=== PATIENT | female | born 1955 | race Caucasian/White ===

== ENCOUNTER 2018-07-07 16:42 | Emergency (ER) | payer BC ==
[2018-07-07 16:53] VITALS: BP 153/77
--- NOTE | 2018-07-07 17:20 | UC ---
Skin Complaint HPI - HPI Summary HPI Summary: PT NOTED A RASH TO HER RIGHT LOWER LEG 7 DAYS AGO. SHE SELF TREATED WITH TWICE DAILY STEROID CREAM X 4 DAYS. THE STEROID CONSISTED OF AN OTC 1% HYDROCORTISONE FOR ONE DOSE THEN HER BOYFRIENDS 2.5% HYDROCORTISONE FOR THE SECOND DOSE DAILY X 4 DAYS. IT DIDN'T HELP AND PT THINKS WORSENING. SHE ALSO TRIED CALAMINE LOTION FOR 2 DAYS WITHOUT ANY IMPROVEMENT WELL. SHE DENIES ANY HX OF ITCH OR PAIN. SHE DENIES ANY OUT OF DOORS ACTIVITY TO CAUSE A CONTACT DERMATITIS. SHE HAS NO OTHER RASH. - History of Current Complaint Chief Complaint: [facility] Time Seen by Provider: 07/07/18 16:55 Stated Complaint: SKIN CONCERN - RT LEG Hx Obtained From: Patient Pain Intensity: 0 Aggravating Factor(s): Nothing Alleviating Factor(s): Nothing Associated Signs & Symptoms: Positive: Rash. Negative: Fever - Allergy/Home Medications Allergies/Adverse Reactions: Allergies Allergy/AdvReac Type Severity Reaction Status Date / Time Penicillins Allergy Hives Verified 07/07/18 16:56 Sulfa (Sulfonamide Allergy Unknown Verified 07/07/18 16:56 Antibiotics) Reaction Details Review of Systems Constitutional: Negative Skin: Rash - RLE Eyes: Negative ENT: Negative Respiratory: Negative Cardiovascular: Negative Gastrointestinal: Negative Genitourinary: Negative Motor: Negative Neurovascular: Negative Musculoskeletal: Negative Neurological: Negative Psychological: Negative Is Patient Immunocompromised?: No All Other Systems Reviewed And Are Negative: Yes PMH/Surg Hx/FS Hx/Imm Hx - Additional Past Medical History Additional PMH: MVP Cardiovascular History: Hypertension GI/ History: Gastroesophageal Reflux Psychological History: Depression - Surgical History Surgical History: Yes Surgery Procedure, Year, and Place: appy. tonsilectomy. left ear surgery at age 18 - Family History Known Family History: Positive: Hypertension - Social History Occupation: Employed Full-time Alcohol Use: Weekly Alcohol Amount: WINE Substance Use Type: None Smoking Status (MU): Former Smoker Have You Smoked in the Last Year: No - Immunization History Most Recent Tetanus Shot: 2011 Hx Tetanus, Diphtheria Vaccination: No Vaccination Up to Date: Yes Physical Exam Triage Information Reviewed: Yes Appearance: Well-Appearing Vital Signs: Initial Vital Signs Temp 98.2 F 07/07/18 16:50 Pulse 75 07/07/18 16:50 Resp 18 08/06/18 16:50 BP 153/77 07/07/18 16:50 Pulse Ox 99 07/07/18 16:50 Vital Signs Reviewed: Yes Eyes: Positive: Conjunctiva Clear ENT: Positive: Pharynx normal. Negative: Nasal congestion, Nasal drainage Neck: Positive: Supple, Nontender, No Lymphadenopathy Respiratory: Positive: Lungs clear, Normal breath sounds Cardiovascular: Positive: RRR, No Murmur Abdomen Description: Positive: Nontender, No Organomegaly, Soft Bowel Sounds: Positive: Present Musculoskeletal: Positive: ROM Intact, No Edema Neurological: Positive: Alert Psychological: Positive: Age Appropriate Behavior Skin Exam: Normal, Other - 2CM X 2-3MM linear red rash medial aspect of RLE. some vesicles noted but no peeling, burrows and not petechial. no other rash on body. Course/Dx - Course Course Of Treatment: PROCEDURE: Rash prep betadine. Scant fluid obtained with tip of 18g needle and superficial aspiration. site clensed, bacitracin applied then bandaide. pt tolerted well. pt has self tx with 1% and 2.5% hydrocortisone plus calamine without improvement. despite tx, there is some ? worsening as well thus I think this goes against contact dermatitis which would have been my 1st concern. it does not look fungal. it does not look c/w an infestation. i was able to collect a little fluid for culture. i will d/c prior tx's since not helping and site has ? worsening. i will cover for a possible bacterial infection with doxycycline x1 week since pt is allergic to sulfa and pcn classes. need for close f/u with pcp for recheck d/w pt as well. - Diagnoses Provider Diagnoses: Acute rash RLE Discharge - Sign-Out/Discharge Documenting (check all that apply): Patient Departure - Discharge Plan Condition: Stable Disposition: HOME Prescriptions: DOXYcycline CAP(*) [DOXYcycline 100MG CAP(*)] 100 mg PO BID #14 cap Patient Education Materials: Acute Rash (ED) Referrals: Shelbie MONK,Laisha Nguyen [Primary Care Provider] - 7 Days Additional Instructions: STOP PRIOR TREATMENTS SINCE NOT HELPING - Billing Disposition and Condition Condition: STABLE Disposition: Home
--- NOTE | 2018-07-09 07:21 | UC ---
- Progress Note Progress Note: no growth day #1 No change Ljj 07/09/2018 Discharge - Sign-Out/Discharge Documenting (check all that apply): Post-Discharge Follow Up - Discharge Plan Condition: Stable Disposition: HOME Prescriptions: DOXYcycline CAP(*) [DOXYcycline 100MG CAP(*)] 100 mg PO BID #14 cap Patient Education Materials: Acute Rash (ED) Referrals: Shelbie MONK,Laisha Nguyen [Primary Care Provider] - 7 Days Additional Instructions: STOP PRIOR TREATMENTS SINCE NOT HELPING - Billing Disposition and Condition Condition: STABLE Disposition: Home
--- NOTE | 2018-07-10 07:34 | UC ---
- Progress Note Progress Note: no growth final wound culture recommend complete abx course no change ljj 07/10/18 Discharge - Sign-Out/Discharge Documenting (check all that apply): Post-Discharge Follow Up - Discharge Plan Condition: Stable Disposition: HOME Prescriptions: DOXYcycline CAP(*) [DOXYcycline 100MG CAP(*)] 100 mg PO BID #14 cap Patient Education Materials: Acute Rash (ED) Referrals: Shelbie MONK,Laisha Nguyen [Primary Care Provider] - 7 Days Additional Instructions: STOP PRIOR TREATMENTS SINCE NOT HELPING - Billing Disposition and Condition Condition: STABLE Disposition: Home
== END 2018-07-07 17:28 | disposition home or self-care (01) ==
LOC: UCCORT 16:42
DX: R21 Rash and other nonspecific skin eruption (principal); Z88.0 Allergy status to penicillin; Z88.1 Allergy status to other antibiotic agents; Z87.891 Personal history of nicotine dependence
CPT/HCPCS: 10160; 87070; 87205; 99212; G0463

== ENCOUNTER 2019-12-26 11:11 | Emergency (ER) | payer BC ==
--- OUTSIDE RECORDS SUMMARY | 2019-12-26 11:58 | XMS REPORT | Summary of Care ---
:1955 Author Organization [facility] Address [address] [place] [address] Care Team Providers Name Role Phone Laisha Morfin MD Primary Care Provider Reason for Referral Consultation (Routine) Status Reason Specialty Diagnoses / Referred By Referred To Procedures Contact Contact Open Specialty Dermatology Diagnoses Atypical nevus of scalp Laisha Morfin MD [address] [place] [address] Email: [email or web address] Diagnostic Radiology (Routine) Status Reason Specialty Diagnoses / Procedures Referred By Contact Referred To Contact Open Radiology Diagnoses Screening mammogram, encounter for Laisha Morfin, Procedures Mammo Digital Screen Bilateral [address] [place] [phone] Email: [email or web address] Diagnostic Radiology (Routine) Status Reason Specialty Diagnoses / Procedures Referred By Contact Referred To Contact Open Diagnoses Postmenopausal bone loss Laisha Morfin, Procedures DEXA Hip and or Spine [address] [place] [phone] Email: [email or web address] [email or web address] (Routine) Status Reason Specialty Diagnoses / Referred By Referred To Procedures Contact Contact Open Specialty Obstetrics and Diagnoses Routine gynecological examination Boni Morfin, Services Gynecology MD Steph Cavanaugh MD Required [id number] [facility] [address] [place] [phone] Phone: Fax: Email: Email: [email or web address] Reason for Visit Reason Comments Annual Exam Encounter Details Date Type Department Care Team Description 12/17/2019 Office Visit [place] Laisha Morfin Annual physical exam ( Primary Dx); Internists EMD Screening mammogram, encounter for; [address] Postmenopausal bone loss; [address] Lipid screening; [place] [address] Weight gain; [phone] Routine gynecological examination; [phone] Atypical nevus of scalp Allergies Active Allergy Reactions Severity Noted Date Comments Penicillins Rash Low 12/02/1994 Sulfa Antibiotics Nausea And Vomiting documented as of this encounter (statuses as of 12/18/2019) Medications Medication Sig Dispensed Refills Start Date End Date Status Naproxen Sodium (ALEVE Take by mouth as 0 Active PO) needed Multiple Vitamin Take 1 capsule by 0 Active (MULTIVITAMIN) capsule mouth daily. atenolol (TENORMIN) 25 TAKE 1 TABLET BY 90 tablet 3 04/06/2019 Active MG tablet MOUTH EVERY DAY omeprazole (PRILOSEC) TAKE 1 CAPSULE BY 90 capsule 3 04/06/2019 Active 20 MG capsule MOUTH DAILY lisinopril Take 2 tablets by 180 tablet 3 05/20/2019 Active (PRINIVIL,ZESTRIL) 5 mouth daily MG tablet Venlafaxine HCl ER 150 TAKE 1 CAPSULE BY 90 capsule 1 11/02/2019 Active MG Oral Capsule MOUTH DAILY Extended Release 24 Hour (EFFEXOR-XR) documented as of this encounter (statuses as of 12/18/2019) Active Problems Problem Noted Date Tubular adenoma of colon 03/26/2018 Overview: 03/18/2018 Dr Gonzalez. Allergic rhinitis 06/25/2017 Hyper-reflexia 08/31/2015 Abnormal cervical Papanicolaou smear with positive human papilloma virus 07/27 (HPV) DNA test GERD (gastroesophageal reflux disease) 07/05/2015 Skin nodule 07/05/2015 Need for zoster vaccination 07/05/2015 HTN (hypertension) 07/05/2015 Neck pain 07/05/2015 Depression 12/10/2013 Overview: late 2011 , father before that and mother is now in assisted living. Chronic loneliness and depression. Not suicidal. documented as of this encounter (statuses as of 12/18/2019) Immunizations Name Administration Dates Next Due Influenza Quad IM Pres Free (0.25 mL 09/01/2019 dose) Influenza Quad IM Pres Free (0.5 mL dose) 08/29/2018, 01/07/2018 Influenza Split 09/01/2015, 08/26/2014, 09/09/2013 Tdap 05/22/2011 documented as of this encounter Social History Tobacco Use Types Packs/Day Years Used Date Former Smoker Cigarettes 12 Quit: 12/02/1986 Smokeless Tobacco: Never Used Alcohol Use Drinks/Week oz/Week Comments Yes 3-4 Glasses of wine 3.0 - 4.0 Sex Assigned at Date Recorded Not on file Job Start Date Occupation Industry Not on file Not on file Not on file Travel History Travel Start Travel End No recent travel history available. documented as of this encounter Last Filed Vital Signs Vital Sign Reading Time Taken Comments Blood Pressure 116/70 12/17/2019 3:56 PM EST Pulse 73 12/17/2019 3:56 PM EST Temperature 36.7 12/17/2019 3:56 PM EST C (98.1 F) Respiratory Rate 16 12/17/2019 3:56 PM EST Oxygen Saturation 98% 12/17/2019 3:56 PM EST RA Inhaled Oxygen Concentration - - Weight 68 kg (150 lb) 12/17/2019 3:56 PM EST Height 165.1 cm (5' 5") 12/17/2019 3:56 PM EST Body Mass Index 24.96 12/17/2019 3:56 PM EST documented in this encounter Patient Instructions Patient InstructionsLaisha Morfin MD - 12/17/2019 4:00 PM ESTHealth care proxy [phone] FaxElectronically signed by Laisha Morfin MD at 2019 4:11 PM EST documented in this encounter Progress Notes Laisha Morfin MD - 12/17/2019 4:00 PM EST Subjective: Patient ID: Vanessa Medina is a 64 y.o. female HPI Patient is here today for her annual physical. 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 Her family is doing well. Over the summer she runs with her dogs. She is s/p left thumb MP joint fusion with Dr. Knox in 11/2018. She has no pain of her joint. In 11/2019, she had a viral infection. She was treated for this. The last couple weeks, she stopped wearing contacts due to significant eye irritation. She had plugs put in her eyes and is continuing to follow with her binman. She had to have multiple bottom teeth pulled. Due to bone complications, she has not been able to start wearing her bottom denture. Patient reports a raised spot on the L scalp that she is concerned about. She has depression and is on effexor 150 mg daily. Patient has hypertension and is on atenolol 25 mg and lisinopril 10 mg daily. Her BP today is 116/70. Her last mammogram on 01/28/2018 was benign. She is not up to date with her pap smear. Her last DEXA in 07/2015 showed bone mineral densities within normal limits. Her last colonoscopy in 03/[address] Gonzalez showed an adenomatous polyp. This report is not in Epic. She received her flu vaccine. We discussed advanced directive. She is living with her boyfriend of 5 years now. He would be her surrogate decision maker. probably a good person to chose she thinks but has 2 children . Will considerconfirming this with a HCP . Form given today. Patient Care Team: Laisha Morfin MD as PCP - General (Internal Medicine) Fritz Knox MD as Consulting Physician (Orthopedic Surgery) Patient Active Problem List Diagnosis Date Noted Tubular adenoma of colon 03/26/2018 03/18/2018 Dr Gonzalez. Allergic rhinitis 06/25/2017 Hyper-reflexia 08/31/2015 Abnormal cervical Papanicolaou smear with positive human papilloma virus (HPV) DNA test 07/27/2015 GERD (gastroesophageal reflux disease) 07/05/2015 Skin nodule 07/05/2015 Need for zoster vaccination 07/05/2015 HTN (hypertension) 07/05/2015 Neck pain 07/05/2015 Depression 12/10/2013 late 2011 , father before that and mother is now in assisted living. Chronic loneliness and depression. Not suicidal. Past Medical History: Diagnosis Date Advance directive discussed with patient 05/22/11 Dr Morfin discussed with pt Anemia 1984 Arthritis ASCUS favor benign 2014 HPV positive Cervical nerve root impingement 2010 X rays showed L inuroforaminal narrowing because of arthritis & some Deg disk changes. Improved w PT Dense breasts Depression Chronically on Lexapro Fatigue 05/22/11 multiple stressors Hearing loss Heart murmur Heart palpitations History of palpitations, MVP History of hyperthyroidism 2008 Probably mild thyroiditis [place] normal History of otitis media as child History of X 2 without complications. Hypertension 2013 Low back pain Lumbar vertebral fracture 1997 Lumbar transverse process fx from fall Mild dysplasia of cervix MVP (mitral valve prolapse) in past. latest echo 2006 without prolapse. Osteoporosis screening Postmenopausal Pulled hamstring Raynaud phenomenon rarely Routine gynecological examination 12/10/13 Dr Morfin atrophic vaginitis S/P colonoscopy 08/08 Dr Gonzalez normal.other than hemorrhoids Scoliosis mild Screening for HIV (human immunodeficiency virus) 05/22/11 negative and low risk SI (sacroiliac) pain Thyroiditis 05/08 mild hyperthyroid which resolved and negative scan. Tick bite of ear 05/14 right ear Vision abnormalities Well woman exam with routine gynecological exam Dr Miller,in past , now Dr Morfin postmenopausal, gets reg bone density. No osteoporosis. latest pap with Dr Morfin 05/22/11 normal. Past Surgical History: Procedure Laterality Date APPENDECTOMY COLONOSCOPY 08/08 Dr Yoly corey ESOPHAGOGASTRODUODENOSCOPY 1986 negative LYMPH NODE BIOPSY s/p axillary nerve injury on the Right w lymph node biopsy, now asymptomatic THUMB FUSION Left 11/17/2018 left thumb, MP joint fusion TONSILLECTOMY Tympanic Membrane Graft 1973 failed Current Outpatient Medications on File Prior to Visit Medication Sig Dispense Refill atenolol (TENORMIN) 25 MG tablet TAKE 1 TABLET BY MOUTH EVERY DAY 90 tablet 3 lisinopril (PRINIVIL,ZESTRIL) 5 MG tablet Take 2 tablets by mouth daily 180 tablet 3 Multiple Vitamin (MULTIVITAMIN) capsule Take 1 capsule by mouth daily. omeprazole (PRILOSEC) 20 MG capsule TAKE 1 CAPSULE BY MOUTH DAILY 90 capsule 3 Venlafaxine HCl ER 150 MG Oral Capsule Extended Release 24 Hour (EFFEXOR- XR) TAKE 1 CAPSULE BY MOUTH DAILY 90 capsule 1 Naproxen Sodium (ALEVE PO) Take by mouth as needed No current facility-administered medications on file prior to visit. Patient's currently listed allergies are: Sulfa antibiotics and Penicillins Immunization History Administered Date(s) Administered Influenza Quad IM Pres Free (0.25 mL dose) 09/01/2019 Influenza Quad IM Pres Free (0.5 mL dose) 01/07/2018, 08/29/2018 Influenza Split 09/09/2013, 08/26/2014, 09/01/2015 Tdap 05/22/2011 Family History Problem Relation Age of Onset Dementia Mother Coronary art dis Mother Osteoporosis Mother COPD Mother Hypertension Mother Coronary art dis Father Hypertension Father Heart attack Maternal Grandmother 57 Stroke Maternal Grandfather 69 Heart attack Paternal Grandfather 50 Lung cancer Paternal Grandmother 86 Prostate cancer Brother 62 Breast cancer Neg Hx Cancer Neg Hx Colon cancer Neg Hx Diabetes Neg Hx Ovarian cancer Neg Hx Heart disease Neg Hx Alcohol abuse Neg Hx Drug abuse Neg Hx Mental illness Neg Hx Social History Socioeconomic History Marital status: Spouse name: None Number of children: 2 Years of education: None Highest education level: None Occupational History 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 Employer: [employer] Social Needs Financial resource strain: None Food insecurity: Worry: None Inability: None Transportation needs: Medical: None Non-medical: None Tobacco Use Smoking status: Former Smoker Years: 12.00 Types: Cigarettes Last attempt to quit: 12/02/1986 Years since quittin.0 Smokeless tobacco: Never Used Substance and Sexual Activity Alcohol use: Yes Alcohol/week: 3.0 - 4.0 standard drinks Types: 3 - 4 Glasses of wine per week Drug use: No Sexual activity: Yes Partners: Male control/protection: Post-menopausal Lifestyle Physical activity: Days per week: None Minutes per session: None Stress: None Relationships Social connections: Talks on phone: None Gets together: None Attends mosque service: None Active member of club or organization: None Attends meetings of clubs or organizations: None Relationship status: None Intimate partner violence: Fear of current or ex partner: None Emotionally abused: None Physically abused: None Forced sexual activity: None Other Topics Concern None Social History Narrative Does dog trainging. 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 Violence (intimate partner violence, elder/child abuse): none Sexual Abuse: no Health Hazards at home/work: no Safe Driving Practices: yes Status: no Diet discussed: yes Folic Acid Intake: yes Regular Exercise: yes Caffeine Intake: yes Advance Directive (living will/power of assistant county attorney): no Organ Donation: no Patient's medications, allergies, past medical, surgical, social and family histories were reviewed and updated as appropriate. Review of Systems Constitutional: Negative. Negative for chills, fever and malaise/fatigue. Respiratory: Negative. Negative for shortness of breath. Cardiovascular: Negative. Negative for chest pain, palpitations, orthopnea, leg swelling and PND. Neurological: Negative for weakness. Objective: Vitals: 12/17/19 1556 BP: 116/70 BP Location: Right arm Patient Position: Sitting Cuff size: Regular Pulse: 73 Resp: 16 Temp: 36.7 C (98.1 F) TempSrc: Oral SpO2: 98% Weight: 68 kg (150 lb) Height: 1.651 m (5' 5") Body mass index is 24.96 kg/m. Physical Exam Vitals signs reviewed. Constitutional: General: She is not in acute distress. Appearance: She is well-developed. She is not diaphoretic. HENT: Head: Normocephalic and atraumatic. Right Ear: Hearing, tympanic membrane, ear canal and external ear normal. Left Ear: Hearing, tympanic membrane, ear canal and external ear normal. Mouth/Throat: Mouth: Mucous membranes are moist. Pharynx: Oropharynx is clear. Uvula midline. No oropharyngeal exudate or posterior oropharyngeal erythema. Tonsils: No tonsillar abscesses. Eyes: General: Lids are normal. No scleral icterus. Right eye: Foreign body present. No discharge or hordeolum. Left eye: Foreign body present.No discharge or hordeolum. Conjunctiva/sclera: Conjunctivae normal. Right eye: No chemosis or exudate. Left eye: No chemosis or exudate. Pupils: Pupils are equal, round, and reactive to light. Funduscopic exam: Right eye: No AV nicking. Left eye: No AV nicking. Neck: Musculoskeletal: Normal range of motion and neck supple. Thyroid: No thyromegaly. Vascular: No carotid bruit. Cardiovascular: Rate and Rhythm: Normal rate and regular rhythm. Pulses: Carotid pulses are 2+ on the right side and 2+ on the left side. Radial pulses are 2+ on the right side and 2+ on the left side. Dorsalis pedis pulses are 2+ on the right side and 2+ on the left side. Posterior tibial pulses are 2+ on the right side and 2+ on the left side. Heart sounds: Normal heart sounds, S1 normal and S2 normal. No murmur. No friction rub. No gallop. Pulmonary: Effort: Pulmonary effort is normal. No respiratory distress. Breath sounds: Normal breath sounds. No stridor. No wheezing, rhonchi or rales. Chest: Chest wall: No tenderness. Breasts: Right: Normal. No swelling, bleeding, inverted nipple, mass, nipple discharge, skin change or tenderness. Left: Normal. No swelling, bleeding, inverted nipple, mass, nipple discharge, skin change or tenderness. Abdominal: General: Bowel sounds are normal. There is no distension. Palpations: Abdomen is soft. There is no mass. Tenderness: There is no abdominal tenderness. There is no guarding or rebound. Hernia: No hernia is present. Musculoskeletal: Right lower leg: No edema. Left lower leg: No edema. Comments: Patient is able to ambulate without difficulty. Lymphadenopathy: Cervical: No cervical adenopathy. Skin: General: Skin is warm and dry. Coloration: Skin is not pale. Comments: Lateral mid-occiput of scalp 3x2 cm raised mole, brown, uniform in color Neurological: Mental Status: She is alert and oriented to person, place, and time. Cranial Nerves: No cranial nerve deficit. Sensory: No sensory deficit. Deep Tendon Reflexes: Reflex Scores: Tricep reflexes are 2+ on the right side and 2+ on the left side. Bicep reflexes are 2+ on the right side and 2+ on the left side. Brachioradialis reflexes are 2+ on the right side and 2+ on the left side. Patellar reflexes are 3+ on the right side and 3+ on the left side. Achilles reflexes are 3+ on the right side and 3+ on the left side. Psychiatric: Mood and Affect: Mood normal. Behavior: Behavior normal. Thought Content: Thought content normal. Judgment: Judgment normal. Assessment: Vanessa was seen today for annual exam. Diagnoses and all orders for this visit: Annual physical exam - Comprehensive metabolic panel; Future - CBC and differential; Future Screening mammogram, encounter for - Mammo Digital Screen Bilateral; Future Postmenopausal bone loss - DEXA Hip and or Spine; Future Lipid screening - Lipid panel; Future Weight gain - TSH; Future - T4, free; Future Routine gynecological examination - Referral to Obstetrics / Gynecology Atypical nevus of scalp - Referral to Dermatology Goals Addressed None Overall, patient is stable and doing well. Counseled patient on advanced directives and health care proxy, provided papers at check out. Continue current medication regimen. Patient is due for the above labs and screenings. Referred patient to [facility] for up to date CIVIL ENGINEERING ASSISTANT examination due to increased risk. Referred patient to dermatology for large, raised mole on scalp. Request records from Dr. Gonzalez forcolonoscopy. Plan: Follow up in [address] annual physical[address]. Morfin obtained and performed the history, physical exam and assessment and plan elements that were entered into the chart by me. Scribed by Apolonia Toledo for Laisha Morfin M.D. on 12/17/19 at 4:29 PM. I attest that the person noted, acting as my scribe, has observed my performance of the services andhas documented them in accordance with my direction, I have personally reviewed the above information, edited as necessary and it accurately refects the work and decisions made by me, I have ordered the diagnostic studies, unless otherwise noted. Laisha Morfin MD. documented in this encounter Plan of Treatment Date Type Specialty Care Team Description 12/30/2020 Office Visit Internal Medicine Laisha Morfin MD [address] [place] [address] [phone] Name Type Priority Associated Diagnoses Order Schedule DEXA Hip and or Spine Imaging Routine Postmenopausal bone loss Expected: 12/17/2019, Expires: 03/17/2021 Mammo Digital Screen Imaging Routine Screening mammogram, Expected: Bilateral encounter for 12/17/2019, Expires: 03/17/2021 Name Type Priority Associated Diagnoses Order Schedule Referral to Outpatient Referral Routine Routine gynecological Ordered: Obstetrics / examination 12/17/2019 Gynecology Referral to Outpatient Referral Routine Atypical nevus of Ordered: Dermatology scalp 12/17/2019 Health Maintenance Due Date Last Done Comments MMR Vaccines ( - 1956 Standard series) Varicella Vaccines (1 of 2 1956 - 2-dose childhood series) Zoster Vaccines (1 of 2) 2005 DTaP,Tdap,and Td Vaccines 06/19/2011 05/22/2011 (2 - Td) Breast Cancer Screening 2 01/28/2020 01/28/2018, 07/12/2015 years Pneumococcal Vaccine: 65+ 2020 Years (1 of 2 - PCV13) Cervical Cancer Screening 5 04/24/2021 04/24/2016, 07/05/2015, years 12/10/2013, Additional history exists Colon Cancer Screening 10 03/26/2028 03/26/2018, 01/07/2018, yrs 01/07/2018, Additional history exists HIV Screening Completed 09/13/2015, 05/22/2011 Hepatitis C Screening (B. Completed 09/13/2015 [id number]) Influenza Vaccine Completed 09/01/2019, 08/29/2018, 01/07/2018, Additional history exists HIB Vaccines Aged Out No longer eligible based on patient's age to complete this topic Hepatitis A Vaccines Aged Out No longer eligible based on patient's age to complete this topic Hepatitis B Vaccines Aged Out No longer eligible based on patient's age to complete this topic IPV Vaccines Aged Out No longer eligible based on patient's age to complete this topic Pneumococcal Vaccine: Aged Out No longer eligible Pediatrics (0 to 5 Years) based on patient's age and At-Risk Patients (6 to to complete this topic 64 Years) documented as of this encounter Goals Goal Patient Goal Associated Recent Patient-Stated? Author Type Problems Progress Weight (lb) < Weight 68 kg (150 lb) Yes Marta, 56.7 kg (125 (12/17/2019 Devena L lb) 3:56 PM EST) documented as of this encounter Procedures Procedure Name Priority Date/Time Associated Comments Diagnosis CBC AND DIFFERENTIAL Routine 12/17/2019 4:46 Annual physical Results for this PM EST exam procedure are in the results section. TSH Routine 12/17/2019 4:46 Weight gain Results for this PM EST procedure are in the results section. T4, FREE Routine 12/17/2019 4:46 Weight gain Results for this PM EST procedure are in the results section. LIPID PANEL Routine 12/17/2019 4:46 Lipid screening Results for this PM EST procedure are in the results section. COMPREHENSIVE Routine 12/17/2019 4:46 Annual physical Results for this METABOLIC PANEL PM EST exam procedure are in the results section. documented in this encounter Results CBC and differential (12/17/2019 4:46 PM EST) White Blood Cell 5.4 4 - 10 [facility] 10*3/uL [facility] Red Blood Cell 3.71 (L) 4.1 - 5.3 [facility] 10*6/uL [facility] Hemoglobin 12.2 11.5 - 15.5 [facility] g/dL [facility] Hematocrit 36.1 36 - 45 % [facility] Mean Cell Volume 97.4 (H) 80 - 96 fL [facility] Mean Cell Hemoglobin 32.8 27 - 33 pg [facility] Mean Cell Hgb Conc 33.7 32.0 - 36.0 [facility] g/dL [facility] Red Cell Dist Width 12.8 11.5 - 14.5 % [facility] Platelet Count 271 150 - 400 [facility] 10*3/uL [facility] Differential Type Automated Diff [facility] Neutrophil 47 % [facility] Lymphocyte 38 % [facility] Monocyte 10 % [facility] Eosinophil 4 % [facility] Basophil 1 % [facility] Abs Neutrophil 2.55 1.8 - 7.0 [facility] 10*3/uL [facility] Abs Lymphocyte 2.03 1.2 - 4.0 [facility] 10*3/uL [facility] Abs Monocyte 0.54 0 - 0.8 [facility] 10*3/uL [facility] Abs Eosinophil 0.21 0 - 0.5 [facility] 10*3/uL [facility] Abs Basophil 0.04 0 - 0.2 [facility] 10*3/uL [facility] Nucleated Red Blood 0 0 - 0 [facility] Cells /100{WBCs} [facility] Specimen EDTA Whole Blood Performing Organization Address City/State/Zipcode Phone Number [facility] CLINICAL PATHOLOGY [address] [place] [address] [phone] [facility] [address] [place] [address] Pathology Lipid panel (12/17/2019 4:46 PM EST) Cholesterol 248 (H) <200 mg/dL [facility] Triglyceride 134 <150 mg/dL [facility] HDL Cholesterol 92 >50 mg/dL [facility] LDL Cholesterol 129 (H) <100 mg/dL [facility] VLDL Cholesterol 27 16 - 42 mg/dl [facility] Non HDL Cholesterol 152 (H) <130 mg/dL [facility] Specimen Plasma Performing Organization Address City/State/Zipcomi Phone Number [facility] CLINICAL PATHOLOGY [address] [place] [address] [facility] [address] [place] [address] Pathology Comprehensive metabolic panel (12/17/2019 4:46 PM EST) Albumin 4.6 3.5 - 5.2 g/dL [facility] Bilirubin, Total 0.2 <1.2 mg/dL [facility] Calcium 9.3 8.8 - 10.2 mg/dL [facility] Chloride 100 98 - 107 mmol/L [facility] Creatinine 0.72 0.50 - 0.90 [facility] mg/dL [facility] Pathology Glucose 91 70 - 140 mg/dL [facility] Alkaline Phosphatase 83 35 - 104 U/L [facility] Potassium 4.7 3.4 - 5.1 mmol/L [facility] Total Protein 7.2 6.4 - 8.3 g/dL [facility] Sodium 140 136 - 145 mmol/L [facility] AST/SGO 17 <32 U/L [facility] Blood Urea Nitrogen 19 8 - 23 mg/dL [facility] Osmolality, Steven 292 275 - 300 [facility] mosm/kg [facility] BUN/Cre Ratio 26 [facility] Bicarbonate 28 22 - 29 mmol/L [facility] ALT/SGP 18 <33 U/L [facility] Anion Gap 12 8 - 15 mmol/L [facility] A/G Ratio 1.8 [facility] GFR Non 89 >60 [facility] Somali 2009 CDK-EPI mL/min/1.73m2 [facility] GFR >90 >60 [facility] 2009 CKD-EPI mL/min/1.73m2 [facility] Specimen Plasma Performing Organization Address [facility] Phone Number [facility] CLINICAL PATHOLOGY [address] [place] [address] [facility] [address] [place] [address] Pathology T4, free (12/17/2019 4:46 PM EST) Free Thyroxine 0.95 0.93 - 1.70 ng/dL [facility] Specimen Plasma Performing Organization Address [facility] Phone Number [facility] CLINICAL PATHOLOGY [address] [place] [address] [phone] [facility] [address] [place] [address] Pathology TSH (12/17/2019 4:46 PM EST) TSH 3.110 0.270 - 4.200 u[IU]/mL [facility] Specimen Plasma Performing Organization Address [facility] Phone [facility] CLINICAL PATHOLOGY [address] [place] [address] [facility] [address] [place] [address] Pathology documented in this encounter Visit Diagnoses Diagnosis Annual physical exam - Primary Routine general medical examination at a health care facility Screening mammogram, encounter for Postmenopausal bone loss Senile osteoporosis Lipid screening Screening for lipoid disorders Weight gain Abnormal weight gain Routine gynecological examination Atypical nevus of scalp Benign neoplasm of scalp and skin of neck documented in this encounter
[2019-12-26 12:04] VITALS: BP 127/63
--- NOTE | 2019-12-26 12:48 | UC ---
Respiratory Complaint HPI - HPI Summary HPI Summary: Pt presents with c/o nasal congestion, cough and "burning in chest" with cough X 4 days. - History of Current Complaint Chief Complaint: UCRespiratory Stated Complaint: COUGH Time Seen by Provider: 12/26/19 12:33 Hx Obtained From: Patient ?: No Onset/Duration: Gradual Onset, Lasting Days, Still Present Timing: Intermittent Episodes Severity Initially: Mild Severity Currently: Mild Pain Intensity: 2 Character: Cough: Productive Aggravating Factors: Deep Breaths, Recumbent Position Alleviating Factors: Nothing Associated Signs And Symptoms: Positive: Chills, URI, Nasal Congestion - Risk Factors Pulmonary Embolism Risk Factors: Negative Cardiac Risk Factors: Hypertension Pseudomonas Risk Factors: Negative Tuberculosis Risk Factors: Negative - Allergies/Home Medications Allergies/Adverse Reactions: Allergies Allergy/AdvReac Type Severity Reaction Status Date / Time Penicillins Allergy Hives Verified 12/26/19 12:05 Sulfa (Sulfonamide Allergy Unknown Verified 12/26/19 12:05 Antibiotics) Reaction Details avoids decongestants r/t Allergy See Comment Uncoded 12/26/19 12:09 heart meds Home Medications: Home Medications Atenolol TAB* [Tenormin TAB* 25 MG] 25 mg PO DAILY 12/26/19 [History Confirmed 12/26/19] Fexofenadine HCl 180 mg PO DAILY 12/26/19 [History Confirmed 12/26/19] Multivitamin [Multivitamins] 1 each PO DAILY 12/26/19 [History Confirmed ] Turmeric Root Extract [Turmeric] 500 mg PO DAILY 12/26/19 [History Confirmed ] PMH/Surg Hx/FS Hx/Imm Hx Previously Healthy: Yes Cardiovascular History: Hypertension - Surgical History Surgical History: Yes Surgery Procedure, Year, and Place: appy. tonsilectomy. left ear surgery at age 18 - Family History Known Family History: Positive: Hypertension - Social History Occupation: Employed Full-time Lives: With Family Alcohol Use: Occasionally Alcohol Amount: WINE Substance Use Type: None Smoking Status (MU): Former Smoker Have You Smoked in the Last Year: No When Did the Patient Quit Smoking/Using Tobacco: 1985 - Immunization History Most Recent Tetanus Shot: 2011 Hx Tetanus, Diphtheria Vaccination: No Vaccination Up to Date: Yes Review of Systems All Other Systems Reviewed And Are Negative: Yes Constitutional: Positive: Chills, Fatigue Skin: Positive: Negative Eyes: Positive: Negative ENT: Positive: Sinus Congestion Respiratory: Positive: Cough Cardiovascular: Positive: Negative Gastrointestinal: Positive: Negative Genitourinary: Positive: Negative Motor: Positive: Negative Neurovascular: Positive: Negative Musculoskeletal: Positive: Negative Neurological: Positive: Negative Psychological: Positive: Negative Is Patient Immunocompromised?: No Physical Exam Triage Information Reviewed: Yes Appearance: Ill-Appearing Vital Signs: Initial Vital Signs Temp 98.1 F 12/26/19 11:58 Pulse 66 12/26/19 11:58 Resp 16 12/26/19 11:58 BP 127/63 12/26/19 11:58 Pulse Ox 99 12/26/19 11:58 Vital Signs Reviewed: Yes Eye Exam: Normal ENT: Positive: Nasal congestion Dental Exam: Normal Neck exam: Normal Respiratory: Positive: Normal breath sounds, No respiratory distress Cardiovascular Exam: Normal Musculoskeletal Exam: Normal Neurological Exam: Normal Psychological Exam: Normal Skin Exam: Normal Diagnostics - Radiology No standard instances Radiology Interpretation Completed By: Radiologist - negative, NAD Respiratory Course/Dx - Differential Dx/Diagnosis Differential Diagnosis/HQI/PQRI: Bronchitis, Influenza Provider Diagnosis: Viral syndrome, Cough in adult Discharge ED - Sign-Out/Discharge Documenting (check all that apply): Patient Departure All imaging exams completed and their final reports reviewed: Yes - Discharge Plan Condition: Stable Disposition: HOME Prescriptions: Albuterol HFA INHALER* [Ventolin HFA Inhaler*] 1 puff INH Q6H PRN #1 mdi PRN Reason: Sob/Wheezing guaiFENesin ER TAB [Mucinex*] 600 mg PO Q12H #14 tab.er predniSONE 10 mg TAB [Deltasone 10 MG TAB*] 30 mg PO DAILY #12 tab Patient Education Materials: Viral Syndrome (ED), Acute Cough (ED) Referrals: Shelbie MONK,Laisha Nguyen [Primary Care Provider] - If Needed - Billing Disposition and Condition Condition: STABLE Disposition: Home
[2019-12-26 13:13] LABS: Influenza A Molecular NEGATIVE (Negative); Influenza B Molecular NEGATIVE (Negative)
== END 2019-12-26 13:26 | disposition home or self-care (01) ==
LOC: UCCORT 11:11
DX: B34.9 Viral infection, unspecified (principal); I10 Essential (primary) hypertension; R05 Cough; R09.81 Nasal congestion; R09.89 Other specified symptoms and signs involving the circulatory and respiratory systems; R53.83 Other fatigue; R68.83 Chills (without fever); Z87.891 Personal history of nicotine dependence; Z79.899 Other long term (current) drug therapy; Z91.09 Other allergy status, other than to drugs and biological substances; Z88.0 Allergy status to penicillin; Z88.2 Allergy status to sulfonamides
CPT/HCPCS: 71046; 99212; G0463